=== PATIENT | female | born 1990 | race African-American/Black ===

== ENCOUNTER 2017-01-17 08:20 | Emergency (ER) | payer OTHER, SELFPAY | END 2017-01-17 08:37 | disposition home or self-care (01) | LOC: NAV ERS 08:20 | DX: J20.9 Acute bronchitis, unspecified (principal); I10 Essential (primary) hypertension; Z79.899 Other long term (current) drug therapy | CPT/HCPCS: 99283 ==

== ENCOUNTER 2017-02-02 17:29 | Emergency (ER) | payer SELFPAY | END 2017-02-02 17:58 | disposition home or self-care (01) | LOC: NAV ERS 17:29 | DX: J02.9 Acute pharyngitis, unspecified (principal); I10 Essential (primary) hypertension; F41.9 Anxiety disorder, unspecified | CPT/HCPCS: 99283 ==

== ENCOUNTER 2017-03-12 00:04 | Emergency (ER) | payer OTHER, SELFPAY ==
[2017-03-12] MEDS ORDERED: Metoclopramide HCl 10 MG/2 ML VIAL ONE (00:40)
[2017-03-12] MEDS ORDERED: diphenhydrAMINE HCl 50 MG/ML 1 ML VIAL ONE (00:40)
[2017-03-12] MEDS ORDERED: Sodium Chloride 0.9% 1,000 ML ONE (00:40)
[2017-03-12 00:44] LABS: Pregnancy Test - Urine (BHCG) NEGATIVE (NEGATIVE); Pregu Control Bar Appear? YES (CONTROL BAR); Specific Gravity 1.018 (1.002-1.036)
== END 2017-03-12 01:55 | disposition home or self-care (01) ==
LOC: NAV ERS 00:04
DX: G43.009 Migraine without aura, not intractable, without status migrainosus (principal); I10 Essential (primary) hypertension; F41.9 Anxiety disorder, unspecified
CPT/HCPCS: 81025; 96361; 96374; 96375; J1200; J2765; J7050

== ENCOUNTER 2018-07-03 20:03 | Emergency (ER) | payer BC, SELFPAY | END 2018-07-03 20:31 | disposition home or self-care (01) | LOC: NAV ERS 20:03 | DX: J06.9 Acute upper respiratory infection, unspecified (principal); R09.82 Postnasal drip; I10 Essential (primary) hypertension; F41.9 Anxiety disorder, unspecified; F17.210 Nicotine dependence, cigarettes, uncomplicated | CPT/HCPCS: 99282 ==

== ENCOUNTER 2019-06-06 09:24 | Outpatient (CLI) | payer OTHER ==
--- NOTE | 2019-06-06 10:56 | RAD ---
RIGHT SHOULDER 3 VIEWS: Date: 06/06/19 HISTORY: Tendinitis. Shoulder pain. FINDINGS: Glenohumeral joint appears normal. AC joint appears normal. No osseous abnormality. IMPRESSION: Unremarkable right shoulder. POS: CORTES
== END 2019-06-06 09:25 | disposition home or self-care (01) ==
LOC: NAV RAD 09:24
PROVIDERS: ATTEND Nurse Practitioner Adult Health
DX: M75.81 Other shoulder lesions, right shoulder (principal)

== ENCOUNTER 2019-06-06 14:12 | Emergency (ER) | payer OTHER | END 2019-06-06 14:40 | disposition home or self-care (01) | LOC: NAV ERS 14:12 | DX: M25.511 Pain in right shoulder (principal); F41.9 Anxiety disorder, unspecified; I10 Essential (primary) hypertension | CPT/HCPCS: 99283 ==

== ENCOUNTER 2019-08-25 20:30 | Emergency (ER) | payer OTHER | END 2019-08-25 21:04 | disposition home or self-care (01) | LOC: NAV ERS 20:30 | DX: M75.51 Bursitis of right shoulder (principal); F41.9 Anxiety disorder, unspecified; I10 Essential (primary) hypertension; Z79.899 Other long term (current) drug therapy | CPT/HCPCS: 93005 ==

== ENCOUNTER 2019-12-24 11:43 | Emergency (ER) | payer MEDICAID, OTHER | END 2019-12-24 12:50 | disposition home or self-care (01) | LOC: NAV ERS 11:43 | DX: R11.0 Nausea (principal); R63.0 Anorexia; T43.225A Adverse effect of selective serotonin reuptake inhibitors, initial encounter | CPT/HCPCS: 99283 ==

== ENCOUNTER 2020-03-03 11:25 | Emergency (ER) | payer OTHER | END 2020-03-03 12:20 | disposition home or self-care (01) | LOC: NAV ERS 11:25 | DX: J06.9 Acute upper respiratory infection, unspecified (principal); I10 Essential (primary) hypertension; F41.9 Anxiety disorder, unspecified | CPT/HCPCS: 99283 ==

== ENCOUNTER 2020-07-27 09:34 | Emergency (ER) | payer OTHER | END 2020-07-27 10:05 | disposition home or self-care (01) | LOC: NAV ERS 09:34 | DX: O99.341 Other mental disorders complicating pregnancy, first trimester (principal); F41.9 Anxiety disorder, unspecified; O10.911 Unspecified pre-existing hypertension complicating pregnancy, first trimester; Z3A.13 13 weeks gestation of pregnancy; Z79.82 Long term (current) use of aspirin; Z79.899 Other long term (current) drug therapy | CPT/HCPCS: 99281 ==

== ENCOUNTER 2020-08-18 21:01 | Emergency (ER) | payer OTHER | END 2020-08-18 21:45 | disposition home or self-care (01) | LOC: NAV ERS 21:01 | DX: O13.2 Gestational [pregnancy-induced] hypertension without significant proteinuria, second trimester (principal); O99.342 Other mental disorders complicating pregnancy, second trimester; F32.9 Major depressive disorder, single episode, unspecified; F41.9 Anxiety disorder, unspecified; Z3A.17 17 weeks gestation of pregnancy | CPT/HCPCS: 99283 ==

== ENCOUNTER 2020-11-08 10:47 | Emergency (ER) | payer OTHER, SELFPAY ==
[2020-11-09 18:35] LABS: SARS-CoV-2 MS2 Positive; SARS-CoV-2 N Gene Negative; SARS-CoV-2 S Gene Negative; SARS-CoV-2 by NAA Not Detected (NotDetected); SARS-CoV-2 orf1ab Negative
== END 2020-11-08 12:18 | disposition home or self-care (01) ==
LOC: NAV ERS 10:47
DX: R05 Cough (principal); Z20.828 Contact with and (suspected) exposure to other viral communicable diseases; I10 Essential (primary) hypertension; Z79.82 Long term (current) use of aspirin; Z79.899 Other long term (current) drug therapy
CPT/HCPCS: 87635; 99283; U0003

== ENCOUNTER 2020-11-11 17:12 | Emergency (ER) | payer OTHER ==
[2020-11-11] MEDS ORDERED: Acetaminophen 500 MG TAB ONE (18:01)
[2020-11-11] MEDS ORDERED: hydrALAZINE 20 MG/ML VIAL ONE (18:01)
[2020-11-11] MEDS ORDERED: Sodium Chloride 0.9% 1,000 ML ONE (18:02)
[2020-11-11] MEDS ORDERED: Ondansetron PF 4 MG/2 ML Vial ONE (18:02)
[2020-11-11 18:15] LABS: #Basophils 0.1 thou/uL (0.0-0.2); #Eosinphils 0.1 thou/uL (0.0-0.7); #Lymphocytes 3.1 thou/uL (1.20-3.40); #Neutrophils 8.2 thou/uL (1.40-6.50); %Basophils 0.9 % (0.0-1.0); %Eosinophils 1.1 % (0.0-10.0); %Lymphocytes 24.4 % (21.0-51.0); %Monocytes 7.7 % (0.0-10.0); %Neutrophils 65.8 % (42.0-75.0); Mean Corpuscular HGB CONC 31.9 g/dL (32.0-36.0); Mean Corpuscular Hemoglobin 24.7 pg (27.0-31.0); Mean Corpuscular Volume 77.6 fL (78.0-98.0); Platelet Count 205 thou/uL (130-400); RBC Distribution Width 14.9 % (11.5-14.5); Red Blood Cell (RBC) Count 5.24 mill/uL (4.20-5.40); White Blood Cell (WBC) Count 12.5 thou/uL (4.8-10.8)
[2020-11-11 18:28] LABS: ALT (SGPT) 13 U/L (8-55); AST (SGOT) 18 U/L (5-34); Albumin 3.5 g/dL (3.5-5.0); Alkaline Phosphatase 83 U/L (40-110); Anion Gap 13 mmol/L (10-20); BUN (Urea Nitrogen) 10 mg/dL (7.0-18.7); Bilirubin, Total 0.3 mg/dL (0.2-1.2); Calc. Creatinine Clearance 0 mL/min (70-130); Carbon Dioxide 21 mmol/L (22-29); Chloride 107 mmol/L (98-107); Globulin 3.3 g/dL (2.4-3.5); Glucose 89 mg/dL (70-105); Potassium 3.7 mmol/L (3.5-5.1); Protein, Total 6.8 g/dL (6.0-8.3); Sodium 137 mmol/L (136-145)
[2020-11-11 18:39] LABS: Hypochromia SLIGHT = 6-15 cells (100X) (0-5/hpf); MDiff Complete? YES; Microcytosis SLIGHT = 6-15 cells (100X) (0-5/hpf); Platelet Morphology Comment Appears Adequate
[2020-11-11 19:32] LABS: Bilirubin Negative (Negative); Blood, Urine Negative (Negative); Clarity Clear (Clear); Glucose, Urine (Dipstick) Negative (Negative); Ketone, Urine Negative (Negative); Leukocyte Negative (Negative); Nitrite Negative (Negative); Protein, Urine (Dipstick) 30 mg/dL (Neg-Trace); pH, Urine 6.5 (5.0-9.0)
[2020-11-11 19:34] LABS: Bacteria/HPF Rare-Few HPF (None Seen); RBC/HPF 0-3 HPF (0-3); WBC/HPF 0-3 HPF (0-3)
[2020-11-11] MEDS ORDERED: NIFEdipine XL 30 MG TAB ONE (20:36)
[2020-11-11] MEDS ORDERED: Labetalol HCl 100 MG/20 ML VIAL ONE (21:23)
== END 2020-11-11 21:38 | disposition short-term general hospital (02) ==
LOC: NAV ERS 17:12
DX: O13.3 Gestational [pregnancy-induced] hypertension without significant proteinuria, third trimester (principal); Z3A.29 29 weeks gestation of pregnancy
CPT/HCPCS: 80053; 81003; 81015; 83880; 84484; 85025; 93005; 96374; 96375; J0360; J2405; J7050

== ENCOUNTER 2021-07-29 07:10 | Emergency (ER) | payer OTHER ==
[2021-07-29 07:56] LABS: Bilirubin Negative (Negative); Blood, Urine Negative (Negative); Clarity Clear (Clear); Glucose, Urine (Dipstick) Negative (Negative); Ketone, Urine Negative (Negative); Leukocyte Negative (Negative); Nitrite Negative (Negative); Protein, Urine (Dipstick) Negative (Neg-Trace); Specific Gravity, Urine 1.025 (1.005-1.030); pH, Urine 6.5 (5.0-9.0)
[2021-07-29 07:57] LABS: Pregnancy Test - Urine (BHCG) Negative (Negative); Specific Gravity 1.025 (1.002-1.036)
[2021-07-29 07:58] LABS: Pregu Control Background? CLEAR/WHITE (CLR/WHITE); Pregu Control Bar Appear? YES (CONTROL BAR)
[2021-07-29 08:36] LABS: #Basophils 0.2 thou/uL (0.0-0.2); #Eosinphils 0.2 thou/uL (0.0-0.7); #Lymphocytes 3.5 thou/uL (1.20-3.40); #Monocytes 0.8 thou/uL (0.11-0.59); #Neutrophils 7.8 thou/uL (1.40-6.50); %Basophils 1.4 % (0.0-1.0); %Eosinophils 1.3 % (0.0-10.0); %Lymphocytes 28.3 % (21.0-51.0); %Monocytes 6.6 % (0.0-10.0); %Neutrophils 62.5 % (42.0-75.0); ALT (SGPT) 16 U/L (8-55); AST (SGOT) 18 U/L (5-34); Albumin 3.9 g/dL (3.5-5.0); Alkaline Phosphatase 53 U/L (40-110); Anion Gap 12 mmol/L (10-20); BUN (Urea Nitrogen) 16 mg/dL (7.0-18.7); Bilirubin, Total 0.3 mg/dL (0.2-1.2); Calc. Creatinine Clearance 0 mL/min (70-130); Calcium 9.3 mg/dL (7.8-10.44); Carbon Dioxide 22 mmol/L (22-29); Chloride 106 mmol/L (98-107); Globulin 3.6 g/dL (2.4-3.5); Glucose 93 mg/dL (70-105); Hemoglobin 11.7 g/dL (12.0-16.0); Mean Corpuscular HGB CONC 30.3 g/dL (32.0-36.0); Mean Corpuscular Hemoglobin 22.3 pg (27.0-31.0); Mean Corpuscular Volume 73.5 fL (78.0-98.0); Mean Platelet Volume 9.7 fL (7.4-10.4); Platelet Count 302 thou/uL (130-400); Potassium 4.1 mmol/L (3.5-5.1); Protein, Total 7.5 g/dL (6.0-8.3); RBC Distribution Width 15.4 % (11.5-14.5); Red Blood Cell (RBC) Count 5.28 mill/uL (4.20-5.40); Sodium 136 mmol/L (136-145); White Blood Cell (WBC) Count 12.4 thou/uL (4.8-10.8)
[2021-07-29 08:37] LABS: MDiff Complete? YES
[2021-07-29 08:38] LABS: Anisocytosis SLIGHT = 6-15 cells (100X) (0-5/hpf); Microcytosis SLIGHT = 6-15 cells (100X) (0-5/hpf)
[2021-07-29] MEDS ORDERED: Iopamidol 370 76% 100 ML VIAL ONE (09:00)
[2021-07-29 14:07] LABS: Platelet Morphology Comment Appears Adequate
== END 2021-07-29 09:35 | disposition home or self-care (01) ==
LOC: NAV ERS 07:10
DX: R10.32 Left lower quadrant pain (principal); I10 Essential (primary) hypertension; Z79.899 Other long term (current) drug therapy
CPT/HCPCS: 71046; 74177; 80053; 81003; 81025; 85025; Q9967

== ENCOUNTER 2021-09-13 22:30 | Emergency (ER) | payer OTHER ==
[2021-09-13] MEDS ORDERED: Ibuprofen 800 MG TAB ONE ×2 (23:03→23:04)
[2021-09-13] MEDS ORDERED: Ibuprofen 200 MG TAB ONE (23:04)
[2021-09-14 17:53] LABS: SARS-CoV-2 PCR by NAA Not Detected (NotDetected)
== END 2021-09-13 23:14 | disposition home or self-care (01) ==
LOC: NAV ERS 22:30
DX: J02.9 Acute pharyngitis, unspecified (principal); Z20.822 Contact with and (suspected) exposure to COVID-19; Z79.899 Other long term (current) drug therapy; I10 Essential (primary) hypertension
CPT/HCPCS: 87081; 87430; 99283; U0003; U0005

== ENCOUNTER 2021-10-29 16:22 | Emergency (ER) | payer OTHER | END 2021-10-29 17:40 | disposition home or self-care (01) | LOC: NAV ERS 16:22 | DX: M77.8 Other enthesopathies, not elsewhere classified (principal); I10 Essential (primary) hypertension | CPT/HCPCS: 84550; 99283 ==

== ENCOUNTER 2022-06-07 11:51 | Emergency (ER) | payer OTHER, SELFPAY ==
[2022-06-07] MEDS ORDERED: Ketorolac Tromethamine 60 MG/2 ML VIAL ONE (12:19)
== END 2022-06-07 12:39 | disposition home or self-care (01) ==
LOC: NAV ERS 11:51
DX: K02.9 Dental caries, unspecified (principal); K03.81 Cracked tooth; I10 Essential (primary) hypertension
CPT/HCPCS: 96372; 99283; J1885

== ENCOUNTER 2022-11-10 23:08 | Emergency (ER) | payer OTHER | END 2022-11-10 23:50 | disposition home or self-care (01) | LOC: NAV ERS 23:08 | DX: F41.1 Generalized anxiety disorder (principal); I10 Essential (primary) hypertension ==

== ENCOUNTER 2023-12-22 20:34 | Emergency (ER) | payer SELFPAY ==
[2023-12-22] MEDS ORDERED: AMOXicillin 250 MG CAP ONE (20:53)
[2023-12-22] MEDS ORDERED: traMADol HCl 50 MG TAB ONE (21:04)
== END 2023-12-22 21:08 | disposition home or self-care (01) ==
LOC: NAV ERS 20:34
DX: K08.89 Other specified disorders of teeth and supporting structures (principal); I10 Essential (primary) hypertension
CPT/HCPCS: 99282

== ENCOUNTER 2023-12-27 17:21 | Emergency (ER) | payer SELFPAY | END 2023-12-27 17:45 | disposition home or self-care (01) | LOC: NAV ERS 17:21 | DX: F41.9 Anxiety disorder, unspecified (principal); I10 Essential (primary) hypertension | CPT/HCPCS: 93005 ==

== ENCOUNTER 2024-07-01 12:40 | Emergency (ER) | payer SELFPAY ==
[2024-07-01] MEDS ORDERED: Ibuprofen 800 MG TAB ONE (13:09)
== END 2024-07-01 13:17 | disposition home or self-care (01) ==
LOC: NAV ERS 12:40
DX: U07.1 COVID-19 (principal); I10 Essential (primary) hypertension
CPT/HCPCS: 99283